=== PATIENT | female | born 1985 | race Asian ===

== ENCOUNTER 2025-02-18 21:06 | Emergency (ER) | payer MEDICAID, OTHER ==
[~2025-02-18] VITALS: Ht 165.1 cm; Wt 66.1 kg
[2025-02-18] MEDS ORDERED: BUSP7.5T8 PO (23:08)
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
[2025-02-18] MEDS: BACITRACIN TOP OINT 1 UD PKG TOP ONE (23:27)
[2025-02-18 23:40] VITALS: BP 156/89; TEMP 98.6
[2025-02-18 23:45] VITALS: PULSE 73; RESP 16; O2SAT 96
== END 2025-02-19 00:07 | disposition home or self-care (01) ==
LOC: ER 21:06
DX: F41.9 Anxiety disorder, unspecified (principal)